=== PATIENT | male | born 1965 | race Two or more races ===

== ENCOUNTER 2021-06-20 14:27 | Emergency (ER) | payer SELFPAY ==
[~2021-06-20] VITALS: Ht 172.7 cm; Wt 129.3 kg
--- NOTE | 2021-06-20 15:16 | NUR ---
[facility] FLORES AT BEDSIDE FOR EVAL
[2021-06-20] MEDS ORDERED: TRAMADOL HCL 50 MG TABLET PO ONE (15:30)
[2021-06-20] MEDS ORDERED: TRAMADOL HCL 50 MG TABLET ONE (15:40)
--- NOTE | 2021-06-20 16:29 | NUR ---
PATIENT WHEELED BACK TO ROOM VIA WHEELCHAIR FROM CT SCAN
[2021-06-20] MEDS ORDERED: IBUP-1955 PO (17:19)
[2021-06-20] MEDS ORDERED: TRAM50TA2 PO (17:19)
[2021-06-20 18:11] VITALS: BP 132/65
--- NOTE | 2021-06-20 18:11 | NUR ---
Patient discharged to home in stable condition. Written and verbal after care instructions given. Patient verbalizes understanding of instruction.
== END 2021-06-20 18:11 | disposition home or self-care (01) ==
LOC: ER 14:32
DX: S16.1XXA Strain of muscle, fascia and tendon at neck level, initial encounter (principal); S89.92XA Unspecified injury of left lower leg, initial encounter; V32.6XXA Passenger in three-wheeled motor vehicle injured in collision with two- or three-wheeled motor vehicle in traffic accident, initial encounter; Y93.89 Activity, other specified; Y92.413 State road as the place of occurrence of the external cause; Y99.8 Other external cause status
CPT/HCPCS: 72125-TC; 72192-TC; 73552; 73590-TC